=== PATIENT | male | born 1995 | race American Indian/Alaskan Native ===

== ENCOUNTER 2018-12-22 06:46 | Emergency (ER) | payer OTHER ==
[2018-12-22 07:14] VITALS: RESP 18
[2018-12-22] MEDS ORDERED: Naproxen 500 MG TAB PO STA (07:38)
[2018-12-22] MEDS ORDERED: Naproxen 500 MG TAB PO ONE (07:56)
--- NOTE | 2018-12-22 08:42 | ED PDOC ---
HPI: Back Time Seen by Provider: 12/22/18 07:28 Chief Complaint (Nursing): Back Pain Chief Complaint (Provider): Back Pain History Per: Patient History/Exam Limitations: no limitations Onset/Duration Of Symptoms: Days Current Symptoms Are (Timing): Still Present Additional Complaint(s): Patient is a 23 y/o male with no significant PMHx who presents to the ED for evaluation of pain over the tail bone when sitting and laying in certain positions for the past week. Patient states to have pain during bowel movements only because it requires sitting. Patient denies fever, blood in stool, constipation, and anal leakage. PCP: None Provided Past Medical History Reviewed: Historical Data, Nursing Documentation, Vital Signs Vital Signs: Last Vital Signs Temp 98.2 F 12/22/18 06:49 Pulse 73 12/22/18 06:49 Resp 18 12/22/18 06:49 BP 124/78 12/22/18 06:49 Pulse Ox 98 12/22/18 06:49 - Medical History PMH: No Chronic Diseases Denies: Chronic Kidney Disease - Surgical History Surgical History: No Surg Hx - Family History Family History: States: No Known Family Hx - Home Medications Home Medications: Ambulatory Orders Medication Instructions Recorded RX: Naproxen 500 mg PO BID #30 tab 12/22/18 - Allergies Allergies/Adverse Reactions: Allergies Allergy/AdvReac Type Severity Reaction Status Date / Time No Known Allergies Allergy Verified 12/22/18 07:04 Review of Systems ROS Statement: Except As Marked, All Systems Reviewed And Found Negative Constitutional: Negative for: Fever Gastrointestinal: Negative for: Constipation, Hematochezia, Other (anal leakage) Musculoskeletal: Positive for: Other (Pain over the tail bone) Physical Exam - Reviewed Nursing Documentation Reviewed: Yes Vital Signs Reviewed: Yes - Physical Exam Appears: Positive for: Non-toxic, No Acute Distress Head Exam: Positive for: ATRAUMATIC, NORMAL INSPECTION, NORMOCEPHALIC Skin: Positive for: Normal Color, Warm, Dry Eye Exam: Positive for: Normal appearance Neck: Positive for: Normal, Painless ROM, Supple Cardiovascular/Chest: Positive for: Regular Rate, Rhythm. Negative for: Murmur Respiratory: Positive for: Normal Breath Sounds. Negative for: Respiratory Distress Gastrointestinal/Abdominal: Positive for: Normal Exam, Soft. Negative for: Tenderness Back: Positive for: Other (tenderness to palpation over coccyx) Rectal: Negative for: Hemorrhoids, Mass, Tenderness (to palpation of anus), Other (abcess) Neurologic/Psych: Positive for: Alert, Oriented. Negative for: Motor/Sensory Deficits Comments: Physical exam performed with the assistance of Aquiles Matthews. - ECG O2 Sat by Pulse Oximetry: 98 (RA) Pulse Ox Interpretation: Normal Medical Decision Making Medical Decision Making: Time: 737 Impression: Sacrum/Coccyx Injury Plan: Naproxen 500 mg PO Sacrum &/or Coccyx (MIN 2 VW) [Rad] Time: 1120 Pain improved. Able to lay, sit, and ambulate without pain. Will followup with outpatient clinic. Patient requested chlamydia GC Urine drug screen. Will be notified of results. Return parameters discussed. ------ Scribe Attestation: Documented by Gregorio Liang, acting as a scribe for Linda Alvarado MD. Provider Scribe Attestation: All medical record entries made by the Scribe were at my direction and personally dictated by me. I have reviewed the chart and agree that the record accurately reflects my personal performance of the history, physical exam, medical decision making, and the department course for this patient. I have also personally directed, reviewed, and agree with the discharge instructions and disposition. Disposition - Clinical Impression Clinical Impression: Low back pain - Disposition Referrals: [facility] [Outside] Disposition Time: 11:20 Condition: IMPROVED Additional Instructions: Take Naproxen twice per day for pain. Take Tylenol during the day for worsened pain. Follow up with primary medical doctor. You will be contacted with the results of the urine test. Prescriptions: RX: Naproxen 500 mg PO BID #30 tab Instructions: Low Back Pain (DC) Forms: [employer] ([place]) Print Language: SY[place]
--- NOTE | 2018-12-22 09:24 | RAD ---
Date of service: 12/22/2018 HISTORY: pain on sitting and palpation over tailbone COMPARISON: None available. FINDINGS: BONES: Normal. No fracture. JOINTS: Normal. No osteoarthritis. SOFT TISSUE: Normal. OTHER FINDINGS: None . IMPRESSION: Normal Bone Xray.
[2018-12-22 10:55] VITALS: BP 117/70; PULSE 61; TEMP 98.9
[2018-12-22 11:21] VITALS: O2SAT 98
== END 2018-12-22 11:30 | disposition home or self-care (01) ==
LOC: H.ER 06:46
DX: M54.5 Low back pain (principal)